=== PATIENT | male | born 1960 | race Caucasian/White ===

== ENCOUNTER 2016-11-21 09:20 | Emergency (ER) | payer OTHER ==
--- NOTE | 2016-11-21 09:53 | ER Document Report ---
ED Medical Screen (RME) - General Chief Complaint: Chest Pain Stated Complaint: ABNORMAL EKG Time Seen by Provider: 11/21/16 09:37 Mode of Arrival: Wheelchair Information source: Patient TRAVEL OUTSIDE OF THE [place] IN LAST 30 DAYS: No - HPI Patient complains to provider of: Abnormal EKG Onset: Just prior to arrival Notes: 11/21/16 09:52 Patient is a 56-year-old male with a history of hypertension and diabetes, who presents to the emergency room from primary care provider's office for abnormal EKG, patient was noted to have a EKG consistent with a flutter with 4-1 conduction rate, patient has no history of this, he has no complaints, states he was at his primary care provider's office for a routine physical, he denies chest pain or shortness of breath, no lightheadedness or dizziness, no syncopal episodes, states he was out working in his yard yesterday and did not experience any symptomatology - Related Data Allergies/Adverse Reactions: No Known Allergies Allergy (Verified 11/21/16 09:29) Past Medical History - Past Medical History Cardiac Medical History: Reports: Hx Hypercholesterolemia, Hx Hypertension Denies: Hx Heart Attack Pulmonary Medical History: Denies: Hx Asthma Neurological Medical History: Denies: Hx Cerebrovascular Accident, Hx Seizures Endocrine Medical History: Reports: Hx Diabetes Mellitus Type 2 Renal/ Medical History: Denies: Hx Peritoneal Dialysis GI Medical History: Denies: Hx Hepatitis, Hx Hiatal Hernia, Hx Ulcer Infectious Medical History: Denies: Hx Hepatitis Past Surgical History: Denies: Hx Open Heart Surgery, Hx Pacemaker Physical Exam - Vital signs Vitals: Temp Pulse Resp BP Pulse Ox 97.6 F 51 L 20 174/89 H 97 11/21/16 09:27 11/21/16 09:27 11/21/16 09:27 11/21/16 09:27 11/21/16 09:27 Course - Vital Signs Vital signs: Temp Pulse Resp BP Pulse Ox 97.6 F 51 L 20 174/89 H 97 11/21/16 09:27 11/21/16 09:27 11/21/16 09:27 11/21/16 09:27 11/21/16 09:27
--- NOTE | 2016-11-21 10:35 | ER Document Report ---
ED Cardiac <TAMMY MANN - Last Filed: 11/21/16 12:41> - General Mode of Arrival: Wheelchair Information source: Patient TRAVEL OUTSIDE OF THE [place] IN LAST 30 DAYS: No - HPI Patient complains to provider of: Other - see narrative Quality of pain: None Similar symptoms previously: No Recently seen / treated by doctor: No <DEBORAH LAZCANO - Last Filed: 11/21/16 13:31> - General Chief Complaint: Chest Pain Stated Complaint: ABNORMAL EKG Time Seen by Provider: 11/21/16 09:37 Notes: Patient is a 56-year-old male that presents to the emergency department today with complaints of an abnormal EKG at an outpatient routine physical. Patient states he was found to be in atrial flutter with no symptoms. Patient states he has never been told he had an irregular heartbeat in the past. Patient denies any chest pain or any other symptoms at this time. (DEBORAH LAZCANO) - Related Data Allergies/Adverse Reactions: No Known Allergies Allergy (Verified 11/21/16 09:29) Past Medical History - General Information source: Patient - Social History Smoking Status: Never Smoker Cigarette use (# per day): No Frequency of alcohol use: None Drug Abuse: None Lives with: Family Family History: Reviewed & Not Pertinent Patient has suicidal ideation: No Patient has homicidal ideation: No - Past Medical History Cardiac Medical History: Reports: Hx Hypercholesterolemia, Hx Hypertension Endocrine Medical History: Reports: Hx Diabetes Mellitus Type 2 Surgical Hx: Negative <DEBORAH LAZCANO - Last Filed: 11/21/16 13:31> Review of Systems - Review of Systems Constitutional: No symptoms reported EENT: No symptoms reported Cardiovascular: See HPI, Other - abnormal heart beat Respiratory: No symptoms reported Gastrointestinal: No symptoms reported Genitourinary: No symptoms reported Male Genitourinary: No symptoms reported Musculoskeletal: No symptoms reported Skin: No symptoms reported Hematologic/Lymphatic: No symptoms reported Neurological/Psychological: No symptoms reported -: Yes All other systems reviewed and negative <DEBORAH LAZCANO - Last Filed: 11/21/16 13:31> Physical Exam <TAMMY MANN - Last Filed: 11/21/16 12:41> <DEBORAH LAZCANO - Last Filed: 11/21/16 13:31> - Vital signs Vitals: Temp Pulse Resp BP Pulse Ox 97.6 F 51 L 20 174/89 H 97 11/21/16 09:27 11/21/16 09:27 11/21/16 09:27 11/21/16 09:27 11/21/16 09:27 - Notes Notes: Physical Exam: General: Alert, appears well. HEENT: Normocephalic. Atraumatic. PERRL. Extraocular movements intact. Oropharynx clear. Neck: Supple. Non-tender. Respiratory: No respiratory distress. Clear and equal breath sounds bilaterally. Cardiovascular: Regular with frequent extra beats, between 4:1 to 3:1 and back to 4:1. No murmur. Rate controlled. Abdominal: Obese. Non-tender. No distension. Normal Bowel Sounds. Back: Non-tender. No deformity or step off. Extremities: Moves all four extremities. Upper extremities: Normal inspection. Normal ROM. Lower extremities: Normal inspection. No edema. Normal ROM. Neurological: Normal cognition. AAOx4. Normal speech. Psychological: Normal affect. Normal Mood. Skin: Warm. Dry. Normal color. (DEBORAH LAZCANO) Course - Laboratory Result Diagrams: 11/21/16 10:10 11/21/16 10:10 - Diagnostic Test Radiology reviewed: Image reviewed - Unremarkable portable chest x-ray - EKG Interpretation by Oh EKG shows normal: QRS Complexes. abnormal: [place], Intervals - Borderline prolonged QT, ST-T Waves - Borderline anterolateral ST elevation Rate: Normal - 86 Rhythm: A.Flutter [place]/QRS: Left axis deviation When compared to previous EKG there are: Previous EKG unavailable - Consults Dr. Hernandez Time consulted: 12:25 Consulted provider: follow-up in office - Start Eliquis 5 mg twice daily and follow-up in the office this week <TAMMY MANN - Last Filed: 11/21/16 12:41> - Laboratory Result Diagrams: 11/21/16 10:10 11/21/16 10:10 <DEBORAH LAZCANO - Last Filed: 11/21/16 13:31> - Re-evaluation Re-evalutation: 11/21/16 12:36 The patient states he will follow-up with his spouse's smt machine operator. (TAMMY MANN) - Vital Signs Vital signs: Temp Pulse Resp BP Pulse Ox 98.7 F 51 L 24 H 135/59 H 93 11/21/16 13:22 11/21/16 09:27 11/21/16 13:01 11/21/16 13:01 11/21/16 13:01 - Laboratory Laboratory results interpreted by me: 11/21/16 11/21/16 10:10 10:10 RBC 5.66 H BUN 26 H Glucose 256 H Discharge <TAMMY MANN - Last Filed: 11/21/16 12:41> <DEBORAH LAZCANO - Last Filed: 11/21/16 13:31> - Discharge Clinical Impression: Atrial flutter with controlled response Condition: Stable Disposition: HOME, SELF-CARE Additional Instructions: Atrial Fibrillation/Flutter: Atrial fibrillation is an abnormal heart rhythm, caused by irregular electrical circuits in the upper heart chamber. It can be caused by heart valve disease, hardening of the arteries, or metabolic problems such as thyroid disease, or may occur without a clear cause. Atrial fibrillation/flutter may occur only occasionally, or may be chronic. Atrial fibrillation/flutter often results in a very fast heart rate, with palpitations, lightheadedness, and shortness of breath. Treatment is to slow the abnormally fast rate, and to convert the rhythm back to normal, if possible. Many patients stay in atrial fibrillation for years without symptoms or complications. Your doctor will decide whether you can be converted back to a normal heart rhythm. Contact the doctor or emergency medical system at once if you develop chest pain, shortness of breath, or severe lightheadedness, or if you develop any disturbance of consciousness, problems with speech, or localized weakness. TAKE THE MEDICATION PRESCRIBED. FOLLOW UP WITH YOUR RESIDENTIAL INSURANCE INSPECTOR THIS WEEK. RETURN TO THE EMERGENCY ROOM IF ANY NEW OR WORSENING SYMPTOMS. Prescriptions: Apixaban [Eliquis 5 mg Tablet] 5 mg PO BID #60 tablet Referrals: HAILEY CHAPIN, [facility] [Primary Care Provider] - Follow up as needed Scribe Attestation: 11/21/16 12:39 I personally performed the services described in the documentation, reviewed and edited the documentation which was dictated to the scribe in my presence, and it accurately records my words and actions. (TAMMY MANN) Scribe Documentation - Scribe Written by Scribe:: Carlyle Bolden, 11/21/2016 1331 acting as scribe for :: Romero <DEBORAH LAZCANO - Last Filed: 11/21/16 13:31>
[2016-11-21 10:39] LABS: ABSOLUTE EOSINOPHILS # (AUTO) 0.2 10^3/uL (0.0-0.6); ABSOLUTE LYMPHOCYTES (AUTO) 1.7 10^3/uL (0.5-4.7); ABSOLUTE MONOCYTES (AUTO) 0.7 10^3/uL (0.1-1.4); ABSOLUTE NEUT (AUTO) 5.3 10^3/uL (1.7-8.2); BASOPHILS % (AUTO) 0.1 % (0-2); EOSINOPHILS % (AUTO) 3.1 % (0-6); HEMATOCRIT 47.8 % (37.9-51.0); HEMOGLOBIN 16.1 g/dL (13.5-17.0); HGB HCT DIFFERENCE 0.5; LYMPHOCYTES % (AUTO) 21.3 % (13-45); MEAN CORPUSCULAR HEMOGLOBIN 28.5 pg (27.0-33.4); MEAN CORPUSCULAR HGB CONC 33.7 g/dL (32.0-36.0); MEAN CORPUSCULAR VOLUME 85 fl (80-97); MONOCYTES % (AUTO) 8.7 % (3-13); RED BLOOD COUNT 5.66 10^6/uL (4.35-5.55); SEGMENTED NEUTROPHILS % (AUTO) 66.8 % (42-78); WHITE BLOOD COUNT 7.9 10^3/uL (4.0-10.5)
[2016-11-21 11:03] LABS: ALANINE AMINOTRANSFERASE 62 U/L (21-72); ALBUMIN 4.2 g/dL (3.5-5.0); ALKALINE PHOSPHATASE 79 U/L (38-126); ANION GAP 16 (5-19); ASPARTATE AMINO TRANSFERASE 36 U/L (17-59); BILIRUBIN,DIRECT 0.3 mg/dL (0.0-0.4); BILIRUBIN,TOTAL 0.7 mg/dL (0.2-1.3); BLOOD UREA NITROGEN 26 mg/dL (7-20); CARBON DIOXIDE 25 mmol/L (22-30); CHLORIDE 99 mmol/L (98-107); CREATINE KINASE 64 U/L (55-170); CREATININE RESULT 1.03 mg/dL (0.52-1.25); GLUCOSE 256 mg/dL (75-110); POTASSIUM 4.5 mmol/L (3.6-5.0); SODIUM 139.6 mmol/L (137-145); TOTAL PROTEIN 7.4 g/dL (6.3-8.2)
[2016-11-21 11:04] LABS: CALCIUM 9.4 mg/dL (8.4-10.2)
[2016-11-21 11:14] LABS: CREATINE KINASE MB 1.11 ng/mL (<4.55)
[2016-11-21 11:18] LABS: TROPONIN I < 0.012 ng/mL
--- NOTE | 2016-11-21 12:53 | RADIOLOGY REPORT (SQ) ---
EXAM DESCRIPTION: CHEST SINGLE VIEW COMPLETED DATE/TIME: 11/21/2016 12:35 pm REASON FOR STUDY: new onset A-flutter COMPARISON: 11/06/2011 EXAM PARAMETERS: NUMBER OF VIEWS: One view. TECHNIQUE: Single frontal radiographic view of the chest acquired. RADIATION DOSE: NA LIMITATIONS: None. FINDINGS: LUNGS AND PLEURA: No opacities, masses or pneumothorax. No pleural effusion. MEDIASTINUM AND HILAR STRUCTURES: No masses. Contour normal. HEART AND VASCULAR STRUCTURES: Heart normal in size. Normal vasculature. BONES: No acute findings. HARDWARE: None in the chest. OTHER: No other significant finding. IMPRESSION: NO ACUTE RADIOGRAPHIC FINDING IN THE CHEST. TECHNICAL DOCUMENTATION: JOB ID: [id number]
[2016-11-21 13:22] VITALS: BP 135/59
--- NOTE | 2016-11-21 18:49 | EKG REPORT ---
SEVERITY:- ABNORMAL ECG - ATRIAL FLUTTER, A-RATE 294 BORDERLINE LEFT AXIS DEVIATION PROBABLE INFERIOR INFARCT, POSSIBLY RECENT BORDERLINE ST ELEVATION, ANTEROLATERAL LEADS BORDERLINE PROLONGED QT INTERVAL : Confirmed by: Brie Mckeon 21-Nov-2016 18:49:13
== END 2016-11-21 13:22 | disposition home or self-care (01) ==
LOC: ER 09:20
DX: I48.92 Unspecified atrial flutter (principal); I10 Essential (primary) hypertension; E11.9 Type 2 diabetes mellitus without complications
CPT/HCPCS: 36415; 71010; 80053; 82550; 82553; 83880; 84443; 84484; 85025; 93005; 93010; 99285